=== PATIENT | female | born 1950 | race Caucasian/White ===

== ENCOUNTER → 2016-11-14 | Outpatient (CLI) | payer MEDICARE ==
--- NOTE | 2016-11-15 10:40 | MM ---
Reason for exam: screening (asymptomatic). Last mammogram was performed 1 year and 1 month ago. History: Patient is postmenopausal. Benign core biopsy of the left breast, 1985. Physical Findings: A clinical breast exam by your physician is recommended on an annual basis and results should be correlated with mammographic findings. MG 3D Screening Mammo W/Cad Bilateral CC and MLO view(s) were taken. Prior study comparison: October 29, 2015, bilateral MG screening mammo w CAD. September 14, 2011, bilateral digital screening mammo w/CAD. There are scattered fibroglandular densities. Finding: There are typically benign calcifications in the left breast. There is a chronic nodularity in the left breast. No significant changes in finding since October 29, 2015 and September 14, 2011. ASSESSMENT: Benign, BI-RAD 2 RECOMMENDATION: Routine screening mammogram of both breasts in 1 year.
== END | disposition home or self-care (01) ==
LOC: RADMAMWWP 12:57
PROVIDERS: ATTEND Internal Medicine
DX: Z12.31 Encounter for screening mammogram for malignant neoplasm of breast (principal); Z78.0 Asymptomatic menopausal state
CPT/HCPCS: 77063; G0202

== ENCOUNTER 2016-12-21 18:16 | Inpatient (IN) | payer MEDICARE ==
[2016-12-21] MEDS ORDERED: SODIUM CHLORIDE 0.9% 1,000 ML IV STA (19:14)
[2016-12-21] MEDS ORDERED: HYDROmorphone 1 MG/ML 1 ML SYRINGE IVP STA (19:15)
[2016-12-21] MEDS ORDERED: ONDANSETRON 4 MG/2 ML VIAL IVP STA (19:15)
--- NOTE | 2016-12-21 19:18 | ED ---
Abdominal Pain HPI - General Chief Complaint: Abdominal Pain Stated Complaint: poss medication reaction Time Seen by Provider: 12/21/16 18:39 Source: patient, RN notes reviewed Mode of arrival: wheelchair Limitations: no limitations - History of Present Illness Initial Comments: Patient is a 66-year-old female presents to the emergency room for evaluation of abdominal pain. Patient states around 4 PM this evening she began with abdominal pain, nausea and vomiting. Patient states she received an injection in her back yesterday by Dr. Ibarra. Patient states she is not sure what the injection was. Patient states she thinks she is having a reaction to the injection. Patient states having 10 out of 10 pain in her abdomen diffusely. Patient also states she is feeling short of breath. Denies cough. Patient states she has a history of perforated bowel from a colonoscopy about 10 years ago, that was surgically repaired. Patient denies any other abdominal surgeries. Patient denies history of bowel obstructions. Patient denies diarrhea or constipation. Patient denies change in color of stools or blood in stools. Patient denies chest pain. Patient denies dizziness. Patient states she is having a headache. Patient denies pain or burning during urination, trouble urinating or blood in urine. - Related Data Home Medications Medication Instructions Recorded Confirmed Atenolol [Tenormin] 50 mg PO QAM 02/08/15 12/21/16 Atorvastatin [Lipitor] 10 mg PO DAILY 02/08/15 12/21/16 Desvenlafaxine Succinate [Pristiq 100 mg PO QAM 02/08/15 12/21/16 ER] Diphenoxylate HCl/Atropine 1 tab PO DAILY 02/08/15 12/21/16 [Lomotil] Levothyroxine Sodium [Synthroid] 137 mcg PO DAILY 02/08/15 12/21/16 amLODIPine [Norvasc] 5 mg PO HS 02/08/15 12/21/16 Aspirin 325 mg PO DAILY 12/21/16 12/21/16 Omeprazole 20 mg PO DAILY 12/21/16 12/21/16 metFORMIN HCL [Glucophage] 500 mg PO BID 12/21/16 12/21/16 Allergies Allergy/AdvReac Type Severity Reaction Status Date / Time quinine Allergy Dyspnea Verified 12/21/16 19:20 ADHESIVE TAPE AdvReac Unknown RED , Uncoded 12/21/16 18:21 IRRITATED SKIN. "PAPER TAPE IS OK" Review of Systems ROS Statement: Those systems with pertinent positive or pertinent negative responses have been documented in the HPI. ROS Other: All systems not noted in ROS Statement are negative. Past Medical History Past Medical History: Deep Vein Thrombosis (DVT), GERD/Reflux, Hyperlipidemia, Hypertension, Osteoarthritis (OA), Thyroid Disorder Additional Past Medical History / Comment(s): ENVIRONMENTAL ALLERGIES, CHRONIC DIARRHEA, FREQUENT URINATION. DVT ,HERNIA,RECENT ABNORMAL CT OF ABD/PELVIS History of Any Multi-Drug Resistant Organisms: None Reported Past Surgical History: Hernia Repair, Joint Replacement Additional Past Surgical History / Comment(s): COLONOSCOPY WITH PERFORATED BOWEL & BOWEL RESECTION THEN MORE SURGERY FOR INFECTION.LEFT HIP REPLACEMENT ( MAY 2013). INCISION HERNIA REPAIR,TUMOR REMOVED FROM BEHIND RT EAR. Past Anesthesia/Blood Transfusion Reactions: No Reported Reaction Additional Past Anesthesia/Blood Transfusion Reaction / Comment(s): SOMETIMES TAKES LONGER WAKING UP FROM ANESTHESIA.DAUGHTER BECOMES AGITATED WITH ANESTHESIA Past Psychological History: Depression Smoking Status: Former smoker Past Alcohol Use History: None Reported Additional Past Alcohol Use History / Comment(s): QUIT SMOKING .STARTED SMOKING APPROX 1963 Past Drug Use History: None Reported - Past Family History Father Additional Family Medical History / Comment(s): BRAIN HEMORRHAGE Son(s) Family Medical History: Cancer Additional Family Medical History / Comment(s): THYROID-NON HODGKINS General Exam - General Exam Comments Initial Comments: Anxious secondary to discomfort Limitations: no limitations General appearance: alert, anxious Head exam: Present: atraumatic, normocephalic, normal inspection Eye exam: Present: normal appearance ENT exam: Present: normal exam Neck exam: Present: normal inspection Respiratory exam: Present: normal lung sounds bilaterally. Absent: respiratory distress Cardiovascular Exam: Present: regular rate, normal rhythm, normal heart sounds GI/Abdominal exam: Present: soft, tenderness (Diffuse tenderness on palpating over the abdomen), guarding (Voluntary guarding on palpating over the abdomen), normal bowel sounds. Absent: distended, rebound, rigid Extremities exam: Present: normal inspection Back exam: Present: normal inspection Neurological exam: Present: alert, oriented X3, CN II-XII intact Psychiatric exam: Present: normal affect, normal mood Skin exam: Present: warm, dry, intact, normal color. Absent: rash Course Vital Signs 12/21/16 12/21/16 12/21/16 18:17 21:05 22:57 Temperature 96.8 F L 97.8 F 97.6 F Pulse Rate 88 90 67 Respiratory 26 H 18 18 Rate Blood Pressure 149/76 132/73 132/68 O2 Sat by Pulse 98 92 L 98 Oximetry Medical Decision Making - Medical Decision Making Patient is a 66-year-old female presents emergency room for evaluation abdominal pain, shortness of breath and nausea/vomiting. Patient noted to have an elevated d-dimer. CTA negative for PE. WBC also elevated. Patient still complaining of abdominal pain. CT abdomen and pelvis significant for small bowel obstruction. NG tube placed. Patient states the shortness of breath has subsided after pain medications given. Patient will be consulted with on-call surgeon. Case discussed with Dr. Pepe and Dr. Roque. Case discussed with AMINA Foster who agreed to admit for Dr. Holbrook. - Lab Data Result diagrams: 12/21/16 19:14 12/21/16 19:14 Lab Results 12/21/16 12/21/16 12/21/16 Range/Units 19:14 19:14 19:18 WBC 20.7 H (3.8-10.6) k/uL RBC 5.36 (3.80-5.40) m/uL Hgb 16.6 H (11.4-16.0) gm/dL Hct 49.2 H (34.0-46.0) % MCV 91.9 (80.0-100.0) fL MCH 31.0 (25.0-35.0) pg MCHC 33.8 (31.0-37.0) g/dL RDW 13.7 (11.5-15.5) % Plt Count 376 (150-450) k/uL Neutrophils % 77 % Lymphocytes % 17 % Monocytes % 4 % Eosinophils % 0 % Basophils % 0 % Neutrophils # 15.9 H (1.3-7.7) k/uL Lymphocytes # 3.6 (1.0-4.8) k/uL Monocytes # 0.8 (0-1.0) k/uL Eosinophils # 0.0 (0-0.7) k/uL Basophils # 0.0 (0-0.2) k/uL PT (9.0-12.0) sec INR (<1.1) APTT (22.0-30.0) sec D-Dimer (<0.60) mg/L FEU Sodium 142 (137-145) mmol/L Potassium 3.9 (3.5-5.1) mmol/L Chloride 108 H (98-107) mmol/L Carbon Dioxide 16 L (22-30) mmol/L Anion Gap 18 mmol/L BUN 22 H (7-17) mg/dL Creatinine 0.68 (0.52-1.04) mg/dL Est GFR (MDRD) Af Amer >60 (>60 ml/min/1.73 sqM) Est GFR (MDRD) Non-Af >60 (>60 ml/min/1.73 sqM) Glucose 195 H (74-99) mg/dL Calcium 11.1 H (8.4-10.2) mg/dL Magnesium 1.6 (1.6-2.3) mg/dL Total Bilirubin 0.9 (0.2-1.3) mg/dL AST 35 (14-36) U/L ALT 38 (9-52) U/L Alkaline Phosphatase 125 (38-126) U/L Total Creatine Kinase 44 (30-135) U/L CK-MB (CK-2) 1.1 (0.0-2.4) ng/mL CK-MB (CK-2) Rel Index 2.5 Troponin I <0.012 (0.000-0.034) ng/mL Total Protein 9.1 H (6.3-8.2) g/dL Albumin 4.8 (3.5-5.0) g/dL Amylase 94 (30-110) U/L Lipase 212 (23-300) U/L Urine Color Urine Appearance (Clear) Urine pH (5.0-8.0) Ur Specific [place] (1.001-1.035) Urine Protein (Negative) Urine Glucose (UA) (Negative) Urine Ketones (Negative) Urine Blood (Negative) Urine Nitrite (Negative) Urine Bilirubin (Negative) Urine Urobilinogen (<2.0) mg/dL Ur Leukocyte Esterase (Negative) Urine RBC (0-5) /hpf Urine WBC (0-5) /hpf Ur Squamous Epith Cells (0-4) /hpf Urine Mucus (None) /hpf 12/21/16 12/21/16 Range/Units 19:18 20:30 WBC (3.8-10.6) k/uL RBC (3.80-5.40) m/uL Hgb (11.4-16.0) gm/dL Hct (34.0-46.0) % MCV (80.0-100.0) fL MCH (25.0-35.0) pg MCHC (31.0-37.0) g/dL RDW (11.5-15.5) % Plt Count (150-450) k/uL Neutrophils % % Lymphocytes % % Monocytes % % Eosinophils % % Basophils % % Neutrophils # (1.3-7.7) k/uL Lymphocytes # (1.0-4.8) k/uL Monocytes # (0-1.0) k/uL Eosinophils # (0-0.7) k/uL Basophils # (0-0.2) k/uL PT 10.8 (9.0-12.0) sec INR 1.1 (<1.1) APTT 22.1 (22.0-30.0) sec D-Dimer 1.49 H (<0.60) mg/L FEU Sodium (137-145) mmol/L Potassium (3.5-5.1) mmol/L Chloride (98-107) mmol/L Carbon Dioxide (22-30) mmol/L Anion Gap mmol/L BUN (7-17) mg/dL Creatinine (0.52-1.04) mg/dL Est GFR (MDRD) Af Amer (>60 ml/min/1.73 sqM) Est GFR (MDRD) Non-Af (>60 ml/min/1.73 sqM) Glucose (74-99) mg/dL Calcium (8.4-10.2) mg/dL Magnesium (1.6-2.3) mg/dL Total Bilirubin (0.2-1.3) mg/dL AST (14-36) U/L ALT (9-52) U/L Alkaline Phosphatase (38-126) U/L Total Creatine Kinase (30-135) U/L CK-MB (CK-2) (0.0-2.4) ng/mL CK-MB (CK-2) Rel Index Troponin I (0.000-0.034) ng/mL Total Protein (6.3-8.2) g/dL Albumin (3.5-5.0) g/dL Amylase (30-110) U/L Lipase (23-300) U/L Urine Color Yellow Urine Appearance Clear (Clear) Urine pH 6.5 (5.0-8.0) Ur Specific [place] 1.014 (1.001-1.035) Urine Protein Trace H (Negative) Urine Glucose (UA) Negative (Negative) Urine Ketones 1+ H (Negative) Urine Blood Negative (Negative) Urine Nitrite Negative (Negative) Urine Bilirubin Negative (Negative) Urine Urobilinogen <2.0 (<2.0) mg/dL Ur Leukocyte Esterase Moderate H (Negative) Urine RBC <1 (0-5) /hpf Urine WBC 7 H (0-5) /hpf Ur Squamous Epith Cells <1 (0-4) /hpf Urine Mucus Rare H (None) /hpf 12/21/16 19:32 Sinuis bradycardia, ventricular rate 59 bpm, MN interval 178 ms, QRS duration 94 ms, QT/QTC 452/447. - Radiology Data Radiology results: report reviewed, image reviewed Disposition Clinical Impression: Leukocytosis, Abdominal pain, Shortness of breath, Small bowel obstruction Disposition: ADMITTED IP TO THIS [facility] Condition: Stable Decision Date: 12/21/16
[2016-12-21 19:23] LABS: Basophils % (A) 0 %; CH 32.7; CHCM 35.7; Eosinophils % (A) 0 %; HCT 49.2 % (34.0-46.0); HDW 2.92; HGB 16.6 gm/dL (11.4-16.0); Luc % (Auto) 1; Lymphocytes # (A) 3.6 k/uL (1.0-4.8); Lymphocytes % (A) 17 %; MCHC 33.8 g/dL (31.0-37.0); MCV 91.9 fL (80.0-100.0); Mean Platelet Volume 6.7; Monocytes # (A) 0.8 k/uL (0-1.0); Monocytes % (A) 4 %; Neutrophils # (A) 15.9 k/uL (1.3-7.7); Neutrophils % (A) 77 %; RBC 5.36 m/uL (3.80-5.40); RDW 13.7 % (11.5-15.5); WBC 20.7 k/uL (3.8-10.6); WBC (Perox) 21.03
[2016-12-21 19:35] LABS: ALT 38 U/L (9-52); AST 35 U/L (14-36); Alkaline Phosphatase 125 U/L (38-126); Amylase 94 U/L (30-110); Anion Gap 18 mmol/L; Blood Urea Nitrogen 22 mg/dL (7-17); Calcium 11.1 mg/dL (8.4-10.2); Carbon Dioxide 16 mmol/L (22-30); Chloride 108 mmol/L (98-107); Glucose 195 mg/dL (74-99); Magnesium 1.6 mg/dL (1.6-2.3); Non-African American GFR(MDRD) >60 (>60 ml/min/1.73 sqM); Potassium 3.9 mmol/L (3.5-5.1); Sodium 142 mmol/L (137-145); Total Bilirubin 0.9 mg/dL (0.2-1.3); Total Protein 9.1 g/dL (6.3-8.2)
--- NOTE | 2016-12-21 19:43 | XR ---
EXAMINATION TYPE: XR chest 2V DATE OF EXAM: 12/21/2016 7:39 PM COMPARISON: 02/02/2016 HISTORY: Vomiting TECHNIQUE: Frontal and lateral views of the chest are obtained. FINDINGS: Heart and mediastinum are normal. Lungs are clear. Costophrenic angles are clear. There ar e no hilar masses. The bony thorax is intact. IMPRESSION: No cardiopulmonary disease. No change.
[2016-12-21 20:47] LABS: Appearance,Urine Clear (Clear); Bilirubin,Urine Negative (Negative); Glucose,Urine (UA) Negative (Negative); Ketones,Urine 1+ (Negative); Leukocyte Esterase,Urine Moderate (Negative); Mucus,Urine Rare /hpf; Nitrite,Urine Negative (Negative); PH, Urine 6.5 (5.0-8.0); Particle Count 1407; Protein,Urine Trace (Negative); RBC,Urine <1 /hpf (0-5); Specific Gravity,Urine 1.014 (1.001-1.035); Squamous Epithelial Cell,Urine <1 /hpf (0-4); UA Billing (MACRO vs. MICRO) MICRO; Urobilinogen,Urine <2.0 mg/dL (<2.0); WBC,Urine 7 /hpf (0-5)
[2016-12-21 20:52] LABS: Creatine Kinase 44 U/L (30-135)
[2016-12-21 20:59] LABS: INR 1.1 (<1.1); Prothrombin Time 10.8 sec (9.0-12.0)
[2016-12-21 21:04] LABS: Creatine Kinase MB 1.1 ng/mL (0.0-2.4); Troponin I <0.012 ng/mL (0.000-0.034)
[2016-12-21 21:10] LABS: Partial Thromboplastin Time 22.1 sec (22.0-30.0)
[2016-12-21] MEDS ORDERED: ACETAMINOPHEN IV (For NPO) 1,000 MG in EMPTY BAG 1 BAG IVPB STA (21:13)
[2016-12-21] MEDS ORDERED: RX INFO: IV CONTRAST WAS GIVEN 1 EACH MISC MISCELLANE PRN (21:20)
--- NOTE | 2016-12-21 22:08 | CT ---
EXAMINATION TYPE: CT angio chest DATE OF EXAM: 12/21/2016 9:45 PM COMPARISON: 11/10/2010 HISTORY: Elevated d-dimer. CT DLP: 529.00 mGycm Automated exposure control for dose reduction was used. CONTRAST: CTA scan of the thorax is performed with IV Contrast, patient injected with 62 mL of Omnipaque 350, p ulmonary embolism protocol. There are 3-D post processed images.. FINDINGS: The thoracic aorta shows mild atheromatous change. There are few mediastinal lymph nodes that measure up to 1 cm. There are few bilateral bronchial lymph nodes up to 1 cm. I see no filling defects in th e pulmonary arteries. There is no pleural effusion. There is coarse subpleural interstitial infiltrat e in the lower lung delgado. There is a 1 cm nodule in the posterior segment left upper lobe. There is no pericardial effusion. Bony thorax appears intact. IMPRESSION: NO EVIDENCE OF PULMONARY EMBOLISM. LEFT UPPER LOBE NODULE IS INCREASED SLIGHTLY COMPARED TO OLD CT SCAN. CLINICAL SIGNIFICANCE IS NOT CL EAR. 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 MILD MEDIASTINAL AND BRONCHIAL ADENOPATHY. THIS APPEARS STABLE COMPARED TO OLD EXAM.
[2016-12-21] MEDS ORDERED: ONDANSETRON 4 MG/2 ML VIAL IVP PRN (22:22)
[2016-12-21] MEDS ORDERED: NALOXONE 0.4 MG/ML 1 ML VIAL IV PRN (22:22)
--- NOTE | 2016-12-21 22:50 | CT ---
EXAMINATION TYPE: CT abdomen pelvis wo con DATE OF EXAM: 12/21/2016 10:32 PM COMPARISON: 09/03/2015 HISTORY: Pt states of abdominal pain. CT DLP: 509.2 mGycm Automated exposure control for dose reduction was used. TECHNIQUE: Helical acquisition of images was performed from the lung bases through the pelvis. FINDINGS: Lung bases are clear of consolidation. There is no pleural effusion. Heart size is normal. The liver spleen pancreas gallbladder appear normal. Bile ducts are not dilated. There is contrast in the kidneys from recent CT scan. There is no hydronephrosis. [place] there is no adrenal mass. Kidneys have normal size and contour. Abdominal aorta is atheromatous. There is mild fat stranding in the rig ht lower quadrant. There are some dilated small bowel loops. The distal ileum does not appear dilated . There appears to be previous right colon surgery. IMPRESSION: THERE ARE SOME DILATED SMALL BOWEL LOOPS IN THE MIDABDOMEN WITH MESENTERIC EDEMA. THIS COULD RELATE T O A MECHANICAL MID SMALL BOWEL OBSTRUCTION. THIS APPEARS NEW COMPARED TO OLD CT SCAN. THERE IS PREVIO US RIGHT COLON SURGERY NOTED.
[2016-12-22] MEDS: HYDROmorphone 1 MG/ML 1 ML SYRINGE IV PRN ×6 (00:15→21:16)
[2016-12-22] MEDS: SODIUM CHLORIDE 0.9% 1,000 ML IV SCH ×3 (01:27→16:49)
[2016-12-22 02:42] VITALS: BMI 26.0
[2016-12-22 08:02] LABS: Glucose,Whole Blood 129 mg/dL (75-99)
[2016-12-22] MEDS: INSULIN LISPRO (humaLOG) 300 UNIT/3 ML VIAL SQ SCH ×4 (08:02→21:15)
[2016-12-22 09:28] LABS: Basophils % (A) 0 %; CH 32.1; CHCM 35.5; Eosinophils % (A) 0 %; HCT 41.6 % (34.0-46.0); HDW 3.09; HGB 14.7 gm/dL (11.4-16.0); Luc # (Auto) 0.56; Luc % (Auto) 3; Lymphocytes # (A) 2.7 k/uL (1.0-4.8); Lymphocytes % (A) 13 %; MCHC 35.3 g/dL (31.0-37.0); MCV 90.7 fL (80.0-100.0); Mean Platelet Volume 6.4; Monocytes # (A) 1.3 k/uL (0-1.0); Monocytes % (A) 6 %; Neutrophils % (A) 79 %; RBC 4.59 m/uL (3.80-5.40); RDW 13.4 % (11.5-15.5); WBC 21.5 k/uL (3.8-10.6)
[2016-12-22 10:05] LABS: Hemoglobin A1C 5.5 % (4.2-6.1)
[2016-12-22 10:17] LABS: ALT 37 U/L (9-52); AST 26 U/L (14-36); Alkaline Phosphatase 85 U/L (38-126); Anion Gap 11 mmol/L; Blood Urea Nitrogen 16 mg/dL (7-17); Calcium 9.3 mg/dL (8.4-10.2); Carbon Dioxide 21 mmol/L (22-30); Chloride 107 mmol/L (98-107); Glucose 113 mg/dL (74-99); Non-African American GFR(MDRD) >60 (>60 ml/min/1.73 sqM); Potassium 4.1 mmol/L (3.5-5.1); Sodium 139 mmol/L (137-145); Total Bilirubin 0.6 mg/dL (0.2-1.3); Total Protein 7.2 g/dL (6.3-8.2)
[2016-12-22] MEDS: PANTOPRAZOLE 40 MG/10 ML VIAL IVP SCH (12:04)
[2016-12-22 12:12] LABS: Glucose,Whole Blood 127 mg/dL (75-99)
[2016-12-22] MEDS ORDERED: LORazepam 2 MG/ML SYRINGE IV PRN (15:42)
--- NOTE | 2016-12-22 16:25 | P.GSCN ---
History of Present Illness Consult date: 12/22/16 Reason for Consult: Bowel obstruction History of present illness: Patient states that she was feeling well up until yesterday morning when she began experiencing crampy abdominal pain. The abdominal pain is in the lower abdomen. This was eventually associated with numerous episodes of nausea and vomiting. She came to the hospital yesterday afternoon with these complaints. No history of similar events in the past. Denies fevers. Her white blood cell count is elevated and on repeat was also elevated. CAT scan shows distended bowel loops. There is some inflammatory changes involving the distal small bowel. No swirling of the mesentery was seen. She says that after they placed the nasogastric tube her pain has dramatically improved to the point that she has only throat related discomfort from the tube at this point. She had a normal bowel movement yesterday. She passed flatus today. Denies rectal bleeding or melena. She is afebrile. No tachycardia. Lactic acid is normal. Review of Systems The patient denies any acute changes in his vision or hearing, no dysphagia or odynophagia, no chest pain or shortness of breath, no dysuria or hematuria, no headache, no runny nose, no rectal bleeding or melena, no unexplained weight loss Past Medical History Past Medical History: Deep Vein Thrombosis (DVT), GERD/Reflux, Hyperlipidemia, Hypertension, Osteoarthritis (OA), Thyroid Disorder Additional Past Medical History / Comment(s): ENVIRONMENTAL ALLERGIES, CHRONIC DIARRHEA, FREQUENT URINATION. DVT ,HERNIA,RECENT ABNORMAL CT OF ABD/PELVIS History of Any Multi-Drug Resistant Organisms: None Reported Past Surgical History: Hernia Repair, Joint Replacement Additional Past Surgical History / Comment(s): COLONOSCOPY WITH PERFORATED BOWEL & BOWEL RESECTION THEN MORE SURGERY FOR INFECTION.LEFT HIP REPLACEMENT ( MAY 2013). INCISION HERNIA REPAIR,TUMOR REMOVED FROM BEHIND RT EAR. Past Anesthesia/Blood Transfusion Reactions: No Reported Reaction Additional Past Anesthesia/Blood Transfusion Reaction / Comm: SOMETIMES TAKES LONGER WAKING UP FROM ANESTHESIA.DAUGHTER BECOMES AGITATED WITH ANESTHESIA Past Psychological History: Depression Smoking Status: Former smoker Past Alcohol Use History: None Reported Additional Past Alcohol Use History / Comment(s): QUIT SMOKING .STARTED SMOKING APPROX 1963 Past Drug Use History: None Reported - Past Family History Father Additional Family Medical History / Comment(s): BRAIN HEMORRHAGE Son(s) Family Medical History: Cancer Additional Family Medical History / Comment(s): THYROID-NON HODGKINS Medications and Allergies Home Medications Medication Instructions Recorded Confirmed Type Atenolol [Tenormin] 50 mg PO QAM 02/08/15 12/21/16 History Atorvastatin [Lipitor] 10 mg PO DAILY 02/08/15 12/21/16 History Desvenlafaxine Succinate [Pristiq 100 mg PO QAM 02/08/15 12/21/16 History ER] Diphenoxylate HCl/Atropine 1 tab PO DAILY 02/08/15 12/21/16 History [Lomotil] Levothyroxine Sodium [Synthroid] 137 mcg PO DAILY 02/08/15 12/21/16 History amLODIPine [Norvasc] 5 mg PO HS 02/08/15 12/21/16 History Aspirin 325 mg PO DAILY 12/21/16 12/21/16 History Omeprazole 20 mg PO DAILY 12/21/16 12/21/16 History metFORMIN HCL [Glucophage] 500 mg PO BID 12/21/16 12/21/16 History Allergies Allergy/AdvReac Type Severity Reaction Status Date / Time quinine Allergy Dyspnea Verified 12/21/16 19:20 ADHESIVE TAPE AdvReac Unknown RED , Uncoded 12/21/16 18:21 IRRITATED SKIN. "PAPER TAPE IS OK" Surgical - Exam Vital Signs Temp Pulse Resp BP Pulse Ox 96.8 F L 88 26 H 149/76 98 12/21/16 18:17 12/21/16 18:17 12/21/16 18:17 12/21/16 18:17 12/21/16 18:17 Physical exam: General: Well-developed, well-nourished HEENT: Normocephalic, sclerae nonicteric Abdomen: Mild lower abdominal tenderness, no rebound or guarding, nondistended Extremities: No edema Neuro: Alert and oriented Results - Labs 12/22/16 09:03 12/22/16 09:03 Abnormal Lab Results - Last 24 Hours (Table) 12/22/16 12/22/16 12/22/16 Range/Units 08:00 09:03 09:03 WBC 21.5 H (3.8-10.6) k/uL Neutrophils # 17.0 H (1.3-7.7) k/uL Monocytes # 1.3 H (0-1.0) k/uL Carbon Dioxide 21 L (22-30) mmol/L Glucose 113 H (74-99) mg/dL POC Glucose (mg/dL) 129 H (75-99) mg/dL 12/22/16 Range/Units 12:10 WBC (3.8-10.6) k/uL Neutrophils # (1.3-7.7) k/uL Monocytes # (0-1.0) k/uL Carbon Dioxide (22-30) mmol/L Glucose (74-99) mg/dL POC Glucose (mg/dL) 127 H (75-99) mg/dL Diabetes panel 12/22/16 12/22/16 Range/Units 09:03 09:03 Sodium 139 (137-145) mmol/L Potassium 4.1 (3.5-5.1) mmol/L Chloride 107 (98-107) mmol/L Carbon Dioxide 21 L (22-30) mmol/L BUN 16 (7-17) mg/dL Creatinine 0.58 (0.52-1.04) mg/dL Glucose 113 H (74-99) mg/dL Hemoglobin A1c 5.5 (4.2-6.1) % Calcium 9.3 (8.4-10.2) mg/dL AST 26 (14-36) U/L ALT 37 (9-52) U/L Alkaline Phosphatase 85 (38-126) U/L Total Protein 7.2 (6.3-8.2) g/dL Albumin 3.8 (3.5-5.0) g/dL Calcium panel 12/22/16 Range/Units 09:03 Calcium 9.3 (8.4-10.2) mg/dL Albumin 3.8 (3.5-5.0) g/dL Pituitary panel 12/22/16 Range/Units 09:03 Sodium 139 (137-145) mmol/L Potassium 4.1 (3.5-5.1) mmol/L Chloride 107 (98-107) mmol/L Carbon Dioxide 21 L (22-30) mmol/L BUN 16 (7-17) mg/dL Creatinine 0.58 (0.52-1.04) mg/dL Glucose 113 H (74-99) mg/dL Calcium 9.3 (8.4-10.2) mg/dL Adrenal panel 04/21/17 Range/Units 09:03 Sodium 139 (137-145) mmol/L Potassium 4.1 (3.5-5.1) mmol/L Chloride 107 (98-107) mmol/L Carbon Dioxide 21 L (22-30) mmol/L BUN 16 (7-17) mg/dL Creatinine 0.58 (0.52-1.04) mg/dL Glucose 113 H (74-99) mg/dL Calcium 9.3 (8.4-10.2) mg/dL Total Bilirubin 0.6 (0.2-1.3) mg/dL AST 26 (14-36) U/L ALT 37 (9-52) U/L Alkaline Phosphatase 85 (38-126) U/L Total Protein 7.2 (6.3-8.2) g/dL Albumin 3.8 (3.5-5.0) g/dL Assessment and Plan (1) Small bowel obstruction Narrative/Plan: The clinical scenario was discussed in detail with the patient and her . Patient certainly appears to have a mechanical obstruction. Internal hernia is a possibility given the inflammatory changes however the patient has improved fairly dramatically since her nasogastric tube placement. The option of laparotomy was reviewed. At this point the patient I decided continue close observation. If the patient has recurrent abdominal pain or persistent leukocytosis or any other worrisome change in her status would proceed with laparotomy at that point. Repeat abdominal x-rays for tomorrow have been ordered. Would continue empiric antibiotics for now. Status: Acute
[2016-12-22] MEDS: PIPERACILLIN-TAZOBACTAM 3.375 GM in DEXTROSE/WATER 1 50ML.BAG IVPB SCH ×2 (16:49→23:49)
--- NOTE | 2016-12-22 17:27 | HP ---
DATE OF ADMISSION: DATE OF SERVICE: 12/22/2016 CHIEF COMPLAINT: Abdominal pain. HISTORY OF PRESENT ILLNESS: This 66-year-old woman with a past history of DVT, GERD, hypertension, hyperlipidemia, history of DJD, history of environmental allergies, history of chronic diarrhea, being followed by Dr. Trevino in the outpatient setting, had complaints of abdominal discomfort, nausea and vomiting since yesterday. The patient had a pain injection in the back by Dr. Ibarra yesterday. The patient was having significant abdominal distention. The pain was out of 10 in intensity, which is diffuse in character. Because of multiple symptomatology, patient came to [facility] and was admitted for further evaluation and treatment. WBC elevated at 21.5. The patient also had a CT scan of the abdomen and pelvis that showed some dilated small loops in the mid abdomen with mesenteric edema; this could be related to mechanical and small bowel obstruction. Otherwise, a chest CT was also done which showed no evidence of pulmonary embolism but a left upper lobe nodule, increased slightly compared to old scan. Interstitial densities in both lungs consistent with idiopathic pulmonary fibrosis also noted. There is no history of any fever, rigor, or chills. No history of any headache, loss of consciousness, seizures. PAST MEDICAL HISTORY: 1. History of DVT. 2. History of GERD. 3. Hypertension. 4. History of previous abdominal surgery with colon resection and colonic perforation. 5. History of depression. 6. History of nicotine dependence. HOME MEDICATIONS: 1. Glucophage 500 mg p.o. b.i.d. 2. Norvasc 5 mg at bedtime. 3. Omeprazole 20 mg p.o. daily. 4. Synthroid 137 mcg p.o. daily. 5. Lomotil 1 tablet p.o. daily. 6. Prestiq ER 100 mg p.o. in the morning. 7. Lipitor 10 mg p.o. daily. 8. Tenormin 50 mg each morning. 9. Aspirin 81 mg. ALLERGIES: QUININE, ADHESIVE TAPES. FAMILY HISTORY: History of cancer, brain hemorrhage in the family. SOCIAL HISTORY: Previous history of smoking. No alcohol or smoking at this time. REVIEW OF SYSTEMS: ENT: No diminishing hearing. No diminished vision. CARDIOVASCULAR SYSTEM: No angina, palpitations. RESPIRATORY SYSTEM: As mentioned earlier. GI: As mentioned earlier. : No dysuria. NERVOUS SYSTEM: No numbness or weakness. ALLERGY/IMMUNOLOGY: No asthma, hayfever. MUSCULOSKELETAL: As mentioned earlier. HEMATOLOGY/ONCOLOGY: No history of anemia. ENDOCRINE: Hypothyroidism and diabetes mellitus. CONSTITUTIONAL: As mentioned earlier. DERMATOLOGY: Negative. RHEUMATOLOGY: Negative. PSYCHIATRY: As mentioned earlier. PHYSICAL EXAMINATION: Patient is alert and oriented x3. Pulse is 94, blood pressure 154/88. Respiration 16. Temperature 97.4. Pulse ox 90% on room air. HEENT: Conjunctivae normal. Oral mucosa moist. NECK: No jugular venous distention. No carotid bruit. No lymph node enlargement. CARDIOVASCULAR SYSTEM: S1 normal. S2 normal. No S3. No S4. RESPIRATORY SYSTEM: Breath sounds diminished at the bases. No rhonchi. No crackles. ABDOMEN: Soft. Mild diffuse distention. Mild diffuse tenderness. No guarding. No rigidity. No mass palpable. Bowel sounds diminished. No ascites. NG tube in situ draining slightly colored fluid. LEGS: No edema. No swelling. NERVOUS SYSTEM: Higher functions as mentioned earlier. Moves all 4 limbs. No focal motor or sensory deficit. LYMPHATICS: No lymph node palpable in neck, axillae or groin. SKIN: No ulcer, rash, bleeding. Labs at this time show WBC 21.5. Sodium 139, potassium 4.1. UA noted. ASSESSMENT: 1. Abdominal pain and distention, pain, possibly partial small bowel obstruction, on NG tube. Conservative line of treatment. 2. History of urinary tract infection. 3. Increased white count. 4. Increased D-dimer. 5. Increased random blood sugar. 6. History of deep venous thrombosis. 7. History of gastroesophageal reflux disease. 8. Hypertension, essential. 9. Hyperlipidemia. 10. History of degenerative joint disease. 11. History of hypothyroidism. 12. History of environmental allergies. 13. History of chronic diarrhea. 14. History of colon perforation and previous surgery after colonoscopy. 15. History degenerative joint disease, hip replacement. 16. History of depression not otherwise specified. 17. Remote history of nicotine dependence. 18. FULL CODE. RECOMMENDATIONS AND DISCUSSION: This 66-year-old woman who presented with multiple complex medical issues, we will monitor patient closely, continue the current medications, continue with symptomatic treatment. Otherwise, at this time I recommend conservative line of treatment. I would also use empiric antibiotics for apparent UTI. I will also recommend cultures. The white count is also elevated. There is a remote possibility of sepsis also to be considered. I would also recommend a lactic acid. Further recommendations to follow. See orders for further details. MTDD
[2016-12-22 17:43] LABS: Glucose,Whole Blood 107 mg/dL (75-99)
[2016-12-22 20:42] LABS: Glucose,Whole Blood 110 mg/dL (75-99)
[2016-12-22] MEDS: amLODIPine 5 MG TAB PO SCH (21:14)
[2016-12-23] MEDS: SODIUM CHLORIDE 0.9% 1,000 ML IV SCH ×3 (02:25→16:06)
[2016-12-23] MEDS: HYDROmorphone 1 MG/ML 1 ML SYRINGE IV PRN ×5 (02:25→22:56)
[2016-12-23 02:56] LABS: Glucose,Whole Blood 97 mg/dL (75-99)
[2016-12-23] MEDS: LEVOTHYROXINE 137 MCG TAB PO SCH (06:07)
[2016-12-23] MEDS: INSULIN LISPRO (humaLOG) 300 UNIT/3 ML VIAL SQ SCH ×4 (07:45→21:06)
[2016-12-23 07:50] LABS: Glucose,Whole Blood 99 mg/dL (75-99)
[2016-12-23] MEDS: PANTOPRAZOLE 40 MG/10 ML VIAL IVP SCH (08:16)
[2016-12-23] MEDS: ATENOLOL 50 MG TAB PO SCH (08:16)
[2016-12-23] MEDS: DESVENLAFAXINE SUCCINATE 50 MG TAB.ER.24H PO SCH (08:16)
[2016-12-23] MEDS: PIPERACILLIN-TAZOBACTAM 3.375 GM in DEXTROSE/WATER 1 50ML.BAG IVPB SCH ×3 (08:17→22:59)
[2016-12-23 08:56] LABS: Basophils % (A) 0 %; CHCM 35.1; Eosinophils # (A) 0.1 k/uL (0-0.7); Eosinophils % (A) 0 %; HCT 43.4 % (34.0-46.0); HDW 3.01; HGB 14.9 gm/dL (11.4-16.0); Luc # (Auto) 0.43; Luc % (Auto) 3; Lymphocytes # (A) 2.9 k/uL (1.0-4.8); Lymphocytes % (A) 18 %; MCH 31.5 pg (25.0-35.0); MCHC 34.5 g/dL (31.0-37.0); MCV 91.5 fL (80.0-100.0); Mean Platelet Volume 6.5; Monocytes # (A) 0.8 k/uL (0-1.0); Monocytes % (A) 5 %; Neutrophils # (A) 11.5 k/uL (1.3-7.7); Neutrophils % (A) 73 %; RBC 4.74 m/uL (3.80-5.40); RDW 13.2 % (11.5-15.5); WBC 15.7 k/uL (3.8-10.6); WBC (Perox) 15.74
[2016-12-23 09:11] LABS: Anion Gap 8 mmol/L; Blood Urea Nitrogen 13 mg/dL (7-17); Calcium 9.8 mg/dL (8.4-10.2); Carbon Dioxide 26 mmol/L (22-30); Chloride 105 mmol/L (98-107); Glucose 98 mg/dL (74-99); Non-African American GFR(MDRD) >60 (>60 ml/min/1.73 sqM); Potassium 4.4 mmol/L (3.5-5.1); Sodium 139 mmol/L (137-145)
--- NOTE | 2016-12-23 10:37 | XR ---
EXAMINATION TYPE: XR abdomen complete w decub DATE OF EXAM: 12/23/2016 8:45 AM COMPARISON: NONE HISTORY: Bowel obstruction TECHNIQUE: Abdomen is examined in the upright and supine views. Left lateral decubitus view is obtain ed. FINDINGS: Nasogastric tube is present with the tip at the gastroesophageal junction region. This coul d be advanced approximately 8 cm. Psoas margins are normal. Normal colonic bowel gas is present. Suspicious air-fluid levels or differe ntial air-fluid levels are not evident. Some areas within mid small bowel loops. Postsurgical changes are at the right ascending colon. No free air is evident. IMPRESSION: 1. Nonspecific abdomen. No suspicious changes of obstruction based on this examination. 2. Nasogastric tube at the gastroesophageal junction. This could be advanced 8 cm.
[2016-12-23] MEDS: BENZOCAINE/MENTHOL LOZENG 1 EACH LOZENGE MUCOUS MEM PRN ×2 (10:38→19:58)
[2016-12-23 12:27] LABS: Glucose,Whole Blood 98 mg/dL (75-99)
--- NOTE | 2016-12-23 14:13 | P.PN ---
Subjective Principal diagnosis: The patient remains fairly stable. Abdominal discomfort the is stable. No worse than yesterday. States she did pass some flatus. On examination she is afebrile. In no acute distress. Vitals are good. Abdomen shows a minimal distention if any at all. Mild tenderness across the lower abdomen but no guarding or rebound. No mass or organomegaly noted. The patient remained stable. Denies any worsening upper abdominal pain. Did pass some flatus. She is afebrile. She is awake alert cheerful. In no acute distress. Vitals are stable. Abdomen is soft not particularly distended. Mild tenderness across the lower abdomen but no guarding or rebound. No mass or organomegaly or hernias noted. RBC is down to 15,700. X-ray was noted showing no significant change. Impression small bowel obstruction with slight improvement clinically with passage of some flatus. Recommendation continued the medical management with the NG tube IV fluids. Monitor her closely. Objective - Vital Signs Vital signs: Vital Signs Temp 97.0 F L 12/23/16 07:00 Pulse 83 12/23/16 07:00 Resp 16 12/23/16 07:00 BP 154/77 12/23/16 07:00 Pulse Ox 95 12/23/16 07:00 Intake & Output 12/22/16 12/23/16 12/23/16 18:59 06:59 18:59 Intake Total 0 Output Total 277 Balance -277 Intake: Oral 0 Output: Gastric Drainage 275 Urine 2 Other: Voiding Method Bedside Commode Bedside Commode # Voids 2 2 - Labs CBC & Chem 7: 12/23/16 07:33 12/23/16 07:33 Labs: Abnormal Lab Results - Last 24 Hours (Table) 12/22/16 12/22/16 12/23/16 Range/Units 17:33 20:39 07:33 WBC 15.7 H (3.8-10.6) k/uL Neutrophils # 11.5 H (1.3-7.7) k/uL POC Glucose (mg/dL) 107 H 110 H (75-99) mg/dL Microbiology - Last 24 Hours (Table) 12/22/16 18:42 Urine Culture - Preliminary Urine,Voided
[2016-12-23 17:14] LABS: Glucose,Whole Blood 100 mg/dL (75-99)
[2016-12-23] MEDS: amLODIPine 5 MG TAB PO SCH (19:59)
[2016-12-23 21:00] LABS: Glucose,Whole Blood 102 mg/dL (75-99)
[2016-12-24 02:24] LABS: Glucose,Whole Blood 94 mg/dL (75-99)
[2016-12-24] MEDS: SODIUM CHLORIDE 0.9% 1,000 ML IV SCH ×3 (04:05→18:28)
[2016-12-24] MEDS: HYDROmorphone 1 MG/ML 1 ML SYRINGE IV PRN ×5 (05:17→21:51)
[2016-12-24] MEDS: LEVOTHYROXINE 137 MCG TAB PO SCH (05:18)
[2016-12-24] MEDS: BENZOCAINE/MENTHOL LOZENG 1 EACH LOZENGE MUCOUS MEM PRN (05:18)
--- NOTE | 2016-12-24 07:23 | PN ---
DATE OF SERVICE: 12/23/2016 This 66-year-old woman was admitted to the hospital with abdominal pain, partial small bowel obstruction. Plain x-ray of the abdomen also was done today. The patient is feeling much better. Still abdomen is slightly tender. NG tube is Dr. Pink is covering for Dr. Latham. The patient apparently had some slight improvement with some flat. Continue NG tube is being continued with IV fluids. No chest pain. No palpitations. No fever. On exam, alert and oriented x3. Pulse 70, blood pressure 143/83, respiratory rate 16, temperature 97.5, pulse ox 93% on room air. HEENT: Conjunctivae normal. NECK: No jugular venous distention . CARDIOVASCULAR: S1, S2. RESPIRATORY: Breath sounds diminished at the bases. A few scattered rhonchi, no crackles. ABDOMEN: Soft, obese, mild diffuse distention. Mild diffuse tenderness present. No guarding. No rigidity. No mass palpable. LEGS: No edema. No swelling. CENTRAL NERVOUS SYSTEM: No focal deficits. LABS: WBC 15.7. ASSESSMENT: 1. Abdominal pain and distention, possibly acute small bowel obstruction on conservative treatment and NG tube. 2. Urinary tract infection. 3. Increased WBC. 4. Increased d-dimer. 5. Increased random blood sugar. 6. History of deep venous thrombosis. 7. History of gastroesophageal reflux disease. 8. Hypertension, essential. 9. Hyperlipidemia. 10. History of degenerative joint disease. 11. History of hypothyroidism. 12. History of environmental allergies. 13. History of chronic diarrhea. 14. History of colonic perforation and previous surgery after colonoscopy. 15. History of degenerative joint disease and hip replacement. 16. History of depression, not otherwise specified. 17. Nicotine dependence. 18. FULL CODE. RECOMMENDATIONS AND DISCUSSION: Recommend to continue current medications, continue symptomatic treatment. Otherwise, at this time I recommend to continue the conservative line of management. The patient lactic acid 1.5, closely follow with Dr. Latham and Dr. Pink. Further recommendations to follow. Prognosis guarded. Discussed with the patient. MTDD
[2016-12-24 07:50] LABS: Glucose,Whole Blood 91 mg/dL (75-99)
[2016-12-24] MEDS: INSULIN LISPRO (humaLOG) 300 UNIT/3 ML VIAL SQ SCH ×4 (08:48→21:25)
[2016-12-24] MEDS: PANTOPRAZOLE 40 MG/10 ML VIAL IVP SCH (08:50)
[2016-12-24] MEDS: PIPERACILLIN-TAZOBACTAM 3.375 GM in DEXTROSE/WATER 1 50ML.BAG IVPB SCH ×3 (08:50→23:36)
[2016-12-24] MEDS: ATENOLOL 50 MG TAB PO SCH (08:50)
[2016-12-24] MEDS: DESVENLAFAXINE SUCCINATE 50 MG TAB.ER.24H PO SCH (08:50)
[2016-12-24 08:59] LABS: Basophils % (A) 0 %; CH 32.2; Eosinophils # (A) 0.1 k/uL (0-0.7); Eosinophils % (A) 1 %; HCT 43.4 % (34.0-46.0); HDW 2.86; HGB 14.5 gm/dL (11.4-16.0); Luc # (Auto) 0.42; Luc % (Auto) 3; Lymphocytes # (A) 2.9 k/uL (1.0-4.8); Lymphocytes % (A) 20 %; MCH 30.8 pg (25.0-35.0); MCHC 33.3 g/dL (31.0-37.0); MCV 92.5 fL (80.0-100.0); Mean Platelet Volume 6.3; Monocytes # (A) 0.9 k/uL (0-1.0); Monocytes % (A) 6 %; Neutrophils # (A) 10.1 k/uL (1.3-7.7); Neutrophils % (A) 70 %; RBC 4.69 m/uL (3.80-5.40); RDW 13.2 % (11.5-15.5); WBC 14.5 k/uL (3.8-10.6); WBC (Perox) 14.61
[2016-12-24 09:12] LABS: Anion Gap 11 mmol/L; Blood Urea Nitrogen 16 mg/dL (7-17); Calcium 9.5 mg/dL (8.4-10.2); Carbon Dioxide 25 mmol/L (22-30); Chloride 105 mmol/L (98-107); Glucose 95 mg/dL (74-99); Non-African American GFR(MDRD) >60 (>60 ml/min/1.73 sqM); Potassium 4.3 mmol/L (3.5-5.1); Sodium 141 mmol/L (137-145)
--- NOTE | 2016-12-24 09:25 | P.PN ---
Progress Note - Text The patient is doing much better. Passing flatus now. She would the however like to keep the NG tube to another day which is reasonable. Less abdominal pain. On examination the patient is awake alert cheerful in no distress. Vitals are stable temperature is normal. The abdomen is soft are definitely less tender especially across the lower abdomen no guarding or rebound. No mass or organomegaly noted. Abdominal pain from yesterday was reviewed revealing nonspecific bowel gas pattern. WBC is down to 14,500 today. Impression. Resolving small bowel obstruction probably secondary to adhesive disease. Recommendation can probably DC the NG tube tomorrow morning. Dr. Latham will follow-up with her tomorrow.
[2016-12-24 12:32] LABS: Glucose,Whole Blood 94 mg/dL (75-99)
[2016-12-24 17:37] LABS: Glucose,Whole Blood 89 mg/dL (75-99)
[2016-12-24] MEDS: amLODIPine 5 MG TAB PO SCH (20:01)
[2016-12-24 21:09] LABS: Glucose,Whole Blood 98 mg/dL (75-99)
[2016-12-24] MEDS: HEPARIN SODIUM,PORCINE 5,000 UNIT/ML 1 ML VIAL SQ SCH (23:37)
[2016-12-25] MEDS: LEVOTHYROXINE 137 MCG TAB PO SCH (05:32)
[2016-12-25] MEDS: HYDROmorphone 1 MG/ML 1 ML SYRINGE IV PRN ×7 (05:32→23:31)
[2016-12-25] MEDS: SODIUM CHLORIDE 0.9% 1,000 ML IV SCH ×2 (05:39→21:01)
[2016-12-25 06:58] LABS: Glucose,Whole Blood 78 mg/dL (75-99)
--- NOTE | 2016-12-25 07:45 | PN ---
DATE OF SERVICE: 12/24/2016 This 66-year-old woman was admitted with acute small bowel obstruction. NG tube, no chest pain or palpitation, no fever. White count is slightly elevated. On exam, alert and oriented x3. Pulse was 59, blood pressure 155/69, respirations 20, temperature is 98.8, pulse ox 94% on room air. HEENT: Conjunctivae normal. NECK: No jugular venous distension. CARDIOVASCULAR: S1, S2, muffled. RESPIRATORY: Breath sounds diminished at the bases, no rhonchi, no crackles. Abdomen is soft, mild diffuse discomfort minimally, no tenderness. No guarding, no rigidity, no mass palpable. No ascites. Bowel sounds diminished. LEGS: No edema, no swelling. NERVOUS SYSTEM: Higher functions as mentioned, moves all 4 limbs, no focal motor deficits. LYMPHATIC: No lymph noted enlargement. SKIN: No ulcer, rash or bleeding. LABS: WBC 14.5, hemoglobin is 14.5. ASSESSMENT: 1. Abdominal pain and distention, acute small bowel obstruction possibly, on conservative line of treatment with NG tube. 2. Urinary tract infection. 3. Increased WBC. 4. Increased D-dimer. 5. Increased random blood sugar. 6. History of deep venous thrombosis. 7. History of gastroesophageal reflux disease. 8. Hypertension, essential. 9. Hyperlipidemia. 10. History of degenerative joint disease. 11. Hypothyroidism. 12. History environmental allergies. 13. History of chronic diarrhea. 14. History colonic perforation and previous surgery after colonoscopy. 15. History of degenerative joint disease and also hip replacement. 16. History of depression, not otherwise specified. 17. History of nicotine dependence. 18. FULL CODE. RECOMMENDATION: Recommend to continue with the conservative line of treatment. Continue with antibiotics. The white count is improving at this time. Closely follow with Surgery. Guarded prognosis. Further recommendations to follow.
[2016-12-25] MEDS: HEPARIN SODIUM,PORCINE 5,000 UNIT/ML 1 ML VIAL SQ SCH ×3 (08:23→23:23)
[2016-12-25] MEDS: ATENOLOL 50 MG TAB PO SCH (08:23)
[2016-12-25] MEDS: DESVENLAFAXINE SUCCINATE 50 MG TAB.ER.24H PO SCH (08:23)
[2016-12-25] MEDS: PANTOPRAZOLE 40 MG/10 ML VIAL IVP SCH (08:23)
[2016-12-25] MEDS: PIPERACILLIN-TAZOBACTAM 3.375 GM in DEXTROSE/WATER 1 50ML.BAG IVPB SCH ×3 (08:23→23:23)
[2016-12-25] MEDS: INSULIN LISPRO (humaLOG) 300 UNIT/3 ML VIAL SQ SCH ×4 (08:23→22:32)
[2016-12-25 08:43] LABS: Basophils # (A) 0.1 k/uL (0-0.2); Basophils % (A) 0 %; CH 32.2; CHCM 35.2; Eosinophils # (A) 0.1 k/uL (0-0.7); Eosinophils % (A) 1 %; HCT 41.5 % (34.0-46.0); HDW 2.91; HGB 14.4 gm/dL (11.4-16.0); Luc # (Auto) 0.29; Luc % (Auto) 2; Lymphocytes % (A) 22 %; MCH 31.8 pg (25.0-35.0); MCHC 34.7 g/dL (31.0-37.0); MCV 91.7 fL (80.0-100.0); Mean Platelet Volume 6.9; Monocytes # (A) 0.8 k/uL (0-1.0); Monocytes % (A) 6 %; Neutrophils # (A) 9.4 k/uL (1.3-7.7); Neutrophils % (A) 69 %; RBC 4.52 m/uL (3.80-5.40); RDW 13.1 % (11.5-15.5); WBC 13.6 k/uL (3.8-10.6); WBC (Perox) 13.35
[2016-12-25 11:28] LABS: Anion Gap 13 mmol/L; Blood Urea Nitrogen 17 mg/dL (7-17); Calcium 9.5 mg/dL (8.4-10.2); Carbon Dioxide 18 mmol/L (22-30); Chloride 108 mmol/L (98-107); Glucose 77 mg/dL (74-99); Non-African American GFR(MDRD) >60 (>60 ml/min/1.73 sqM); Potassium 3.9 mmol/L (3.5-5.1); Sodium 139 mmol/L (137-145)
[2016-12-25 12:05] LABS: Glucose,Whole Blood 86 mg/dL (75-99)
--- NOTE | 2016-12-25 17:19 | P.PN ---
Subjective Principal diagnosis: bowel obstruction patient frustrated with the nasogastric tube. She has had a small amount of flatus. Still no bowel movement. Abdominal pain is absent. Objective - Vital Signs Vital signs: Vital Signs Temp 96.9 F L 12/25/16 15:00 Pulse 60 12/25/16 15:00 Resp 16 12/25/16 16:00 BP 141/70 12/25/16 15:00 Pulse Ox 93 L 12/25/16 15:00 Intake & Output 12/24/16 12/25/16 12/25/16 18:59 06:59 18:59 Intake Total 650 Output Total 0 0 Balance 650 0 Weight 75.5 kg Intake: IV 650 Piperacillin-Tazobactam 3 50 .375 gm In Dextrose/Water 1 50ml.bag @ 12.5 mls/hr IVPB Q8HR [facility]TE Rx#: [id number] Sodium Chloride 0.9% 1, 600 000 ml @ 75 mls/hr IV . [id number] MAYTE Rx#:[id number] Output: Gastric Drainage 0 0 Other: # Voids 2 1 2 - Exam abdomen: Soft, mild lower abdominal tenderness - Labs CBC & Chem 7: 12/25/16 07:56 12/25/16 07:56 Labs: Abnormal Lab Results - Last 24 Hours (Table) 12/25/16 12/25/16 Range/Units 07:56 07:56 WBC 13.6 H (3.8-10.6) k/uL Neutrophils # 9.4 H (1.3-7.7) k/uL Chloride 108 H (98-107) mmol/L Carbon Dioxide 18 L (22-30) mmol/L Microbiology - Last 24 Hours (Table) 12/22/16 15:57 Blood Culture - Preliminary Blood No Growth after 48 hours Assessment and Plan (1) Small bowel obstruction Narrative/Plan: Will check small bowel series tomorrow. Further commendations will follow. Status: Acute
[2016-12-25 17:32] LABS: Glucose,Whole Blood 95 mg/dL (75-99)
[2016-12-25] MEDS: BENZOCAINE/MENTHOL LOZENG 1 EACH LOZENGE MUCOUS MEM PRN (17:39)
--- NOTE | 2016-12-25 18:43 | P.PN ---
Subjective Date of service 12/25/2016. Progress note being dictated for Dr. Aguilera. Interval history: This a 66-year-old female admitted with acute small bowel obstruction. NG tube maintained to low intermittent suction. Passing flatus, no bowel movement. Denies abdominal pain. States has abdominal tenderness after eating ice chips. Denies chest pain, palpitations or increasing shortness of breath. Afebrile, leukocytosis improving. Objective - Vital Signs Vital signs: Vital Signs Temp 96.9 F L 12/25/16 15:00 Pulse 60 12/25/16 15:00 Resp 16 12/25/16 16:00 BP 141/70 12/25/16 15:00 Pulse Ox 93 L 12/25/16 15:00 Intake & Output 12/24/16 12/25/16 12/25/16 18:59 06:59 18:59 Intake Total 650 Output Total 0 150 Balance 650 -150 Weight 75.5 kg Intake: IV 650 Piperacillin-Tazobactam 3 50 .375 gm In Dextrose/Water 1 50ml.bag @ 12.5 mls/hr IVPB Q8HR [facility]TE Rx#: [id number] Sodium Chloride 0.9% 1, 600 000 ml @ 75 mls/hr IV . [id number] MAYTE Rx#:[id number] Output: Gastric Drainage 0 150 Other: # Voids 2 1 2 - Exam PHYSICAL EXAM: VITAL SIGNS: As above GENERAL: [Sitting up in bed, no acute distress] HEENT: [Pupils equal conjunctiva normal. NG tube present] NECK: [Supple, no JVD] RESPIRATORY EFFORT:[Normal] LUNGS: [Clear, bilateral bases diminished, no wheezes rhonchi or crackles] CARDIOVASCULAR[regular S1-S2, no edema] GI: [Abdomen soft, diffuse abdominal tenderness, hypoactive bowel sounds.] PSYCH: [Alert and oriented -3, mood and affect normal.] NEURO: No focal deficits - Labs CBC & Chem 7: 12/25/16 07:56 12/25/16 07:56 Labs: Abnormal Lab Results - Last 24 Hours (Table) 12/25/16 12/25/16 Range/Units 07:56 07:56 WBC 13.6 H (3.8-10.6) k/uL Neutrophils # 9.4 H (1.3-7.7) k/uL Chloride 108 H (98-107) mmol/L Carbon Dioxide 18 L (22-30) mmol/L Microbiology - Last 24 Hours (Table) 12/22/16 15:57 Blood Culture - Preliminary Blood No Growth after 72 hours Assessment and Plan Plan: 1. [Abdominal pain and distention, acute small bowel obstruction possibly, currently on conservative treatment with NG tube]. 2. [Acute UTI]. 3. [Leukocytosis]. 4. [Increased d-dimer]. 5. [Gastroesophageal reflux disease]. 6. [Essential hypertension]. 7. [Hyperlipidemia]. 8. Degenerative joint disease 9. Hypothyroidism 10. History of chronic diarrhea 11. History of colonic perforation and previous surgery after colonoscopy 12. Degenerative joint disease with hip replacement 13. History of depression, not otherwise specified 14. History of nicotine dependence Plan: Continue on current medication regime, antibiotics, monitoring and symptomatic treatment. Maintain IV fluid hydration. Small bowel series tomorrow as per surgery. Prognosis guarded. Further recommendations to follow. The impression and plan of care has been dictated as directed. : I performed a H&P examination of this patient and discussed the same with the dictator. I agree with the dictator's note. Any additional findings/opinions/ etc. will be noted.
[2016-12-25] MEDS: amLODIPine 5 MG TAB PO SCH (21:01)
[2016-12-25 21:36] LABS: Glucose,Whole Blood 84 mg/dL (75-99)
--- NOTE | 2016-12-25 22:17 | PN ---
DATE OF SERVICE: 12/25/2016 This 66-year-old woman who was admitted with abdominal pain, distention, had a possible small bowel obstruction. Seen and evaluated the patient with the nurse practitioner. Please refer to the nurse practitioner's notes and impressions documented as a scribe for further information. Further recommendations to follow.
[2016-12-26] MEDS: HYDROmorphone 1 MG/ML 1 ML SYRINGE IV PRN ×4 (02:21→14:12)
[2016-12-26] MEDS: LEVOTHYROXINE 137 MCG TAB PO SCH (06:22)
[2016-12-26 07:47] LABS: Glucose,Whole Blood 85 mg/dL (75-99)
[2016-12-26] MEDS: PIPERACILLIN-TAZOBACTAM 3.375 GM in DEXTROSE/WATER 1 50ML.BAG IVPB SCH ×3 (07:56→23:38)
[2016-12-26] MEDS: HEPARIN SODIUM,PORCINE 5,000 UNIT/ML 1 ML VIAL SQ SCH ×3 (07:57→23:38)
[2016-12-26] MEDS: PANTOPRAZOLE 40 MG/10 ML VIAL IVP SCH (07:59)
[2016-12-26] MEDS: BENZOCAINE/MENTHOL LOZENG 1 EACH LOZENGE MUCOUS MEM PRN (08:01)
[2016-12-26] MEDS: INSULIN LISPRO (humaLOG) 300 UNIT/3 ML VIAL SQ SCH ×4 (08:02→21:20)
[2016-12-26] MEDS: SODIUM CHLORIDE 0.9% 1,000 ML IV SCH ×2 (10:57→23:41)
[2016-12-26] MEDS: DESVENLAFAXINE SUCCINATE 50 MG TAB.ER.24H PO SCH (10:57)
[2016-12-26] MEDS: ATENOLOL 50 MG TAB PO SCH (10:57)
--- NOTE | 2016-12-26 11:12 | FL ---
EXAMINATION TYPE: FL small bowel follow through DATE OF EXAM: 12/26/2016 10:46 AM CLINICAL HISTORY: Admitted for bowel obstruction 5 days earlier. History of colon surgery after perfo rated colon. TECHNIQUE: A single contrast small bowel follow through is performed utilizing barium. A total of 50 seconds of fluoroscopic time was utilized during procedure. COMPARISON: CT abdomen and pelvis from 5 days ago. FINDINGS: [employer] image of the abdomen shows interval placement of nasogastric tube with decompression of stomach. There is overall nonobstructive bowel gas pattern with scattered gas in the periphery of the abdomen and pelvis. Surgical sutures and clips in the right lower quadrant are present. Metallic hardware from left hip surgery is partially imaged. Underlying levoconvex scoliosis centered at L3 l evel is redemonstrated. Contrast was instilled through nasogastric tube. The small bowel study shows normal transit to the co catherine in less than 110 minutes. There is a normal mucosal fold pattern throughout the small bowel. Th ere is no evidence of any stricture or filling defect noted. Small bowel loops are felt within normal limits currently. Some lack of small bowel loops suggest prior partial resection. IMPRESSION: Interval resolution of abnormal dilatation consistent with resolving small bowel obstruct ion.
[2016-12-26 11:36] LABS: Glucose,Whole Blood 83 mg/dL (75-99)
[2016-12-26 11:55] LABS: Basophils # (A) 0.1 k/uL (0-0.2); Basophils % (A) 0 %; CHCM 35.1; Eosinophils # (A) 0.1 k/uL (0-0.7); Eosinophils % (A) 1 %; HCT 42.1 % (34.0-46.0); HDW 2.94; HGB 14.3 gm/dL (11.4-16.0); Luc # (Auto) 0.32; Luc % (Auto) 3; Lymphocytes # (A) 2.1 k/uL (1.0-4.8); Lymphocytes % (A) 16 %; MCH 31.2 pg (25.0-35.0); MCV 91.6 fL (80.0-100.0); Mean Platelet Volume 6.4; Monocytes # (A) 0.8 k/uL (0-1.0); Monocytes % (A) 6 %; Neutrophils # (A) 9.7 k/uL (1.3-7.7); Neutrophils % (A) 74 %; RDW 13.2 % (11.5-15.5); WBC (Perox) 13.24
[2016-12-26 12:08] LABS: Anion Gap 12 mmol/L; Blood Urea Nitrogen 20 mg/dL (7-17); Calcium 9.6 mg/dL (8.4-10.2); Carbon Dioxide 23 mmol/L (22-30); Chloride 105 mmol/L (98-107); Glucose 87 mg/dL (74-99); Non-African American GFR(MDRD) >60 (>60 ml/min/1.73 sqM); Potassium 3.9 mmol/L (3.5-5.1); Sodium 140 mmol/L (137-145)
[2016-12-26 16:49] LABS: Glucose,Whole Blood 112 mg/dL (75-99)
--- NOTE | 2016-12-26 18:38 | P.PN ---
Subjective Principal diagnosis: bowel obstruction Patient feels well today. Small bowel series shows resolution of the small bowel obstruction. She is afebrile. Denies pain. She did have a normal bowel movement today. Appetite has returned. Objective - Vital Signs Vital signs: Vital Signs Temp 97.1 F L 12/26/16 15:00 Pulse 61 12/26/16 15:00 Resp 16 12/26/16 15:00 BP 138/73 12/26/16 15:00 Pulse Ox 94 L 12/26/16 15:00 Intake & Output 12/25/16 12/26/16 12/26/16 18:59 06:59 18:59 Intake Total 850 Output Total 150 125 Balance -150 -125 850 Weight 75.5 kg Intake: Oral 850 Output: Gastric Drainage 150 125 Other: # Voids 2 2 4 - Exam Abdomen: Soft, nondistended, nontender - Labs CBC & Chem 7: 12/26/16 11:30 12/26/16 11:30 Labs: Abnormal Lab Results - Last 24 Hours (Table) 12/26/16 12/26/16 12/26/16 Range/Units 11:30 11:30 16:43 WBC 13.0 H (3.8-10.6) k/uL Neutrophils # 9.7 H (1.3-7.7) k/uL BUN 20 H (7-17) mg/dL POC Glucose (mg/dL) 112 H (75-99) mg/dL Microbiology - Last 24 Hours (Table) 12/22/16 15:57 Blood Culture - Preliminary Blood No Growth after 96 hours Assessment and Plan (1) Small bowel obstruction Narrative/Plan: We'll remove the nasogastric tube today. Begin clear liquid diet. Hopefully advance diet tomorrow. Status: Acute
[2016-12-26] MEDS: amLODIPine 5 MG TAB PO SCH (20:57)
[2016-12-26 21:02] LABS: Glucose,Whole Blood 94 mg/dL (75-99)
--- NOTE | 2016-12-26 22:31 | PN ---
DATE OF SERVICE: 12/26/2016 This 66-year-old woman who was admitted with abdominal pain had small-bowel obstruction. She is being closely monitored. Dr. Latham is following the patient closely. A recent small bowel x-ray series showed interval resolution of abnormal dilatation consistent with resolving small-bowel obstruction. Of note, the white count is also 13 at this time. No fever. No cough. On exam, alert and oriented x3. Pulse is 61, blood pressure 138/73, respiration 16, temperature 97.1, pulse ox 94% on room air. HEENT: Conjunctivae normal. NECK: No jugular venous distention. CARDIOVASCULAR SYSTEM: S1, S2 muffled. RESPIRATORY SYSTEM: Breath sounds diminished at the bases. No rhonchi. No crackles. ABDOMEN: Soft. Mild diffuse discomfort on palpation. No guarding. No rigidity. No mass palpable. Bowel sounds present. No ascites. LEGS: No edema. No swelling. NERVOUS SYSTEM: No focal deficit. LABS: WBC 13, hemoglobin 14.3. BUN is noted. ASSESSMENT: 1. Abdominal pain and distention; possible acute small bowel obstruction possibly, currently on conservative line of treatment with NG tube. 2. Acute urinary tract infection. 3. Leukocytosis. 4. Increased D-dimer. 5. Gastroesophageal reflux disease. 6. Essential hypertension. 7. Hyperlipidemia. 8. History of degenerative joint disease. 9. History of hypothyroidism. 10. History of chronic diarrhea. 11. History of colonic perforation and previous surgery after colonoscopy. 12. Degenerative joint disease and hip replacement. 13. History of depression not otherwise specified. 14. History of nicotine dependence. RECOMMENDATIONS AND DISCUSSION: I recommend to continue with the current medications, continue with the monitoring, symptomatic treatment. Otherwise, at this time I recommend diet per Surgery. Continue with empiric antibiotics. Continue to monitor. Further recommendations to follow. Prognosis guarded.
[2016-12-27] MEDS: LEVOTHYROXINE 137 MCG TAB PO SCH (05:53)
[2016-12-27] MEDS: INSULIN LISPRO (humaLOG) 300 UNIT/3 ML VIAL SQ SCH ×2 (07:17→12:36)
[2016-12-27 07:30] LABS: Glucose,Whole Blood 86 mg/dL (75-99)
[2016-12-27 07:48] VITALS: BP 142/73; PULSE 74; RESP 16; TEMP 97.3
[2016-12-27] MEDS: DESVENLAFAXINE SUCCINATE 50 MG TAB.ER.24H PO SCH (08:32)
[2016-12-27] MEDS: PIPERACILLIN-TAZOBACTAM 3.375 GM in DEXTROSE/WATER 1 50ML.BAG IVPB SCH (08:32)
[2016-12-27] MEDS: HEPARIN SODIUM,PORCINE 5,000 UNIT/ML 1 ML VIAL SQ SCH (08:32)
[2016-12-27] MEDS: PANTOPRAZOLE 40 MG/10 ML VIAL IVP SCH (08:32)
[2016-12-27] MEDS: ATENOLOL 50 MG TAB PO SCH (08:32)
[2016-12-27] MEDS ORDERED: ACETAMINOPHEN TAB 325 MG TAB PO PRN (08:36)
[2016-12-27 10:13] LABS: Basophils % (A) 0 %; CH 31.9; CHCM 35.1; Eosinophils # (A) 0.2 k/uL (0-0.7); Eosinophils % (A) 2 %; HCT 38.9 % (34.0-46.0); HDW 2.91; HGB 13.5 gm/dL (11.4-16.0); Luc # (Auto) 0.22; Luc % (Auto) 2; Lymphocytes # (A) 2.1 k/uL (1.0-4.8); Lymphocytes % (A) 21 %; MCH 31.7 pg (25.0-35.0); MCHC 34.6 g/dL (31.0-37.0); MCV 91.5 fL (80.0-100.0); Mean Platelet Volume 6.6; Monocytes # (A) 0.5 k/uL (0-1.0); Monocytes % (A) 6 %; Neutrophils # (A) 6.7 k/uL (1.3-7.7); Neutrophils % (A) 68 %; RBC 4.26 m/uL (3.80-5.40); RDW 13.4 % (11.5-15.5); WBC 9.8 k/uL (3.8-10.6); WBC (Perox) 10.25
[2016-12-27 10:23] LABS: Anion Gap 11 mmol/L; Blood Urea Nitrogen 10 mg/dL (7-17); Calcium 9.2 mg/dL (8.4-10.2); Carbon Dioxide 21 mmol/L (22-30); Chloride 107 mmol/L (98-107); Glucose 234 mg/dL (74-99); Non-African American GFR(MDRD) >60 (>60 ml/min/1.73 sqM); Sodium 139 mmol/L (137-145)
[2016-12-27] MEDS: POTASSIUM CHLORIDE ER 20 MEQ TAB.ER PO SCH ×3 (11:09→13:59)
--- NOTE | 2016-12-27 11:30 | P.PN ---
Subjective Principal diagnosis: bowel obstruction Patient doing well today. She is tolerating her liquid diet thus far. She is hoping to go home today. He has no pain. Is having some liquid stools. Objective - Vital Signs Vital signs: Vital Signs Temp 97.3 F L 12/27/16 07:00 Pulse 74 12/27/16 07:00 Resp 16 12/27/16 07:00 BP 142/73 12/27/16 07:00 Pulse Ox 96 12/27/16 07:00 Intake & Output 12/26/16 12/27/16 12/27/16 18:59 06:59 18:59 Intake Total 850 Balance 850 Intake: Oral 850 Other: # Voids 4 1 1 # Bowel Movements 1 - Exam Abdomen: Soft, nontender, nondistended - Labs CBC & Chem 7: 12/27/16 09:37 12/27/16 09:37 Labs: Abnormal Lab Results - Last 24 Hours (Table) 12/26/16 12/26/16 12/26/16 Range/Units 11:30 11:30 16:43 WBC 13.0 H (3.8-10.6) k/uL Neutrophils # 9.7 H (1.3-7.7) k/uL Potassium (3.5-5.1) mmol/L Carbon Dioxide (22-30) mmol/L BUN 20 H (7-17) mg/dL Glucose (74-99) mg/dL POC Glucose (mg/dL) 112 H (75-99) mg/dL 12/27/16 Range/Units 09:37 WBC (3.8-10.6) k/uL Neutrophils # (1.3-7.7) k/uL Potassium 3.0 L* (3.5-5.1) mmol/L Carbon Dioxide 21 L (22-30) mmol/L BUN (7-17) mg/dL Glucose 234 H (74-99) mg/dL POC Glucose (mg/dL) (75-99) mg/dL Microbiology - Last 24 Hours (Table) 12/22/16 15:57 Blood Culture - Preliminary Blood No Growth after 96 hours Assessment and Plan (1) Small bowel obstruction Narrative/Plan: Advance diet. If tolerates stable for discharge from my standpoint. Status: Acute
--- NOTE | 2016-12-27 12:31 | DS ---
DATE OF ADMISSION: 12/21/2016 DATE OF DISCHARGE: PROGRESS NOTE AND DISCHARGE SUMMARY The patient is a 66-year-old who came in with abdominal pain, found to have partial small bowel obstruction improved with conservative measures and patient is clinically doing well except for 4 episodes of diarrhea which may be related to the barium she received today morning, but patient is also on IV antibiotics. I do not believe patient will require any antibiotics. Patient does not have any acute abdomen at this point of time. Antibiotics will be discontinued. May be contributing to her diarrhea as well. If patient has diarrhea again will obtain Clostridium difficile testing at that time. Patient will need to stay in the hospital. Otherwise, the patient can be discharged if her diarrhea improves later in the day today. We are advancing the diet at this point of time. Patient is hypokalemic because of the diarrhea and potassium was supplemented at this point of time. REVIEW OF SYSTEMS: CARDIOVASCULAR: No chest pain, no orthopnea, no PND, no palpitations. PULMONARY: Denied any shortness of breath. No cough or hemoptysis. GASTROINTESTINAL: As mentioned above. NEUROLOGIC: No headaches, no weakness, no numbness. Medications were reviewed. PHYSICAL EXAMINATION: VITAL SIGNS: Temperature 97.3, pulse of 74, respiratory rate of 16, blood pressure is 142/73, saturating at 96% on room air. GENERAL: The patient is alert and oriented x3, not in any acute distress. Well developed, well nourished. HEENT: Pupils are round and equally reacting to light. EOMI. No scleral icterus. No conjunctival pallor. Normocephalic, atraumatic. No pharyngeal erythema. No thyromegaly. CARDIOVASCULAR: S1 and S2 present. No murmurs, rubs, or gallops. PULMONARY: Chest is clear to auscultation, no wheezing or crackles. ABDOMEN: Soft, nontender, nondistended, normoactive bowel sounds. No palpable organomegaly. MUSCULOSKELETAL: No joint swelling or deformity. EXTREMITIES: No cyanosis, clubbing, or pedal edema. NEUROLOGICAL: Gross neurological examination did not reveal any focal deficits. SKIN: No rashes. LABORATORY DATA: Potassium of 3.0 as mentioned above. ASSESSMENT AND PLAN: 1. Partial small bowel obstruction, improved with conservative measures. 2. Patient was treated for urinary tract infection although I do not believe patient has urinary tract infection. Urine cultures are negative. Patient probably has asymptomatic bacteruria. 3. Leukocytosis. It appears to be reactive which is improving at this point of time. 4. Diarrhea secondary to above mentioned reasons. 5. Hypertension. 6. Hyperlipidemia. 7. Hypothyroidism. Patient will be discharged today as mentioned above and patient will follow with Dr. El Latham as needed and seen by Dr. Nuria Trevino on January 03 at 3 p.m. Cardiac and diabetic 1800 calorie diet. Spent greater than 35 minutes in total discharge process.
[2016-12-27 12:32] LABS: Glucose,Whole Blood 93 mg/dL (75-99)
== END 2016-12-27 14:42 | disposition home or self-care (01) | DRG 390 ==
LOC: EC 18:16 → 4MS4W 22:22
PROVIDERS: ADMIT Hospitalist; ATTEND Hospitalist
PROC: 0D9670Z Drainage of Stomach with Drainage Device, Via Natural or Artificial Opening (ICD-10-PCS; principal; 2016-12-21)
DX: K56.60 Unspecified intestinal obstruction (principal); J84.112 Idiopathic pulmonary fibrosis; I10 Essential (primary) hypertension; R82.71 Bacteriuria; E78.5 Hyperlipidemia, unspecified; E03.9 Hypothyroidism, unspecified; E11.9 Type 2 diabetes mellitus without complications; K21.9 Gastro-esophageal reflux disease without esophagitis; F32.9 Major depressive disorder, single episode, unspecified; R35.0 Frequency of micturition; E87.6 Hypokalemia; M19.91 Primary osteoarthritis, unspecified site; F17.200 Nicotine dependence, unspecified, uncomplicated; Z86.718 Personal history of other venous thrombosis and embolism; Z87.440 Personal history of urinary (tract) infections; Z96.642 Presence of left artificial hip joint; Z79.82 Long term (current) use of aspirin; Z79.84 Long term (current) use of oral hypoglycemic drugs; Z79.899 Other long term (current) drug therapy
CPT/HCPCS: 36415; 43753; 71020; 71275; 74020; 74176; 74250; 80048; 80053; 81001; 82150; 82550; 82553; 83036; 83605; 83690; 83735; 84484; 85025; 85379; 85610; 85730; 87040; 87086; 93005; 94760

== ENCOUNTER → 2018-01-01 | Outpatient (CLI) | payer MEDICARE ==
--- NOTE | 2018-01-03 11:09 | MM ---
Reason for exam: screening (asymptomatic). Last mammogram was performed 1 year and 2 months ago. History: Patient is postmenopausal. Benign core biopsy of the left breast, 1985. Physical Findings: A clinical breast exam by your physician is recommended on an annual basis and results should be correlated with mammographic findings. MG 3D Screening Mammo W/Cad Bilateral CC and MLO view(s) were taken. Prior study comparison: November 14, 2016, bilateral MG 3d screening mammo w/cad. October 29, 2015, bilateral MG screening mammo w CAD. There are scattered fibroglandular densities. No significant changes when compared with prior studies. ASSESSMENT: Negative, BI-RAD 1 RECOMMENDATION: Routine screening mammogram of both breasts in 1 year.
== END | disposition home or self-care (01) ==
LOC: RADMAMWWP 10:40
PROVIDERS: ATTEND Internal Medicine
DX: Z12.31 Encounter for screening mammogram for malignant neoplasm of breast (principal)
CPT/HCPCS: 77063; 77067

== ENCOUNTER → 2018-01-02 | Outpatient (CLI) | payer MEDICARE ==
--- NOTE | 2018-01-02 17:17 | US ---
EXAMINATION TYPE: US venous doppler duplex LE RT DATE OF EXAM: 01/02/2018 5:03 PM COMPARISON: NONE CLINICAL HISTORY: M79.89 Rt Lower Ext Pain and swelling. Recent travel SIDE PERFORMED: Right TECHNIQUE: The lower extremity deep venous system is examined utilizing real time linear array sonog riley with graded compression, doppler sonography and color-flow sonography. VESSELS IMAGED: External Iliac Vein (EIV) Common Femoral Vein Deep Femoral Vein Greater Saphenous Vein * Femoral Vein Popliteal Vein Small Saphenous Vein * Proximal Calf Veins (* superficial vessels) DESCRIPTION: Grayscale, color doppler, spectral doppler imaging performed of the deep veins of the l ower extremities. There are no filling defects. There is normal flow, compressibility, vascular wavef orms. IMPRESSION: NEGATIVE FOR VENOUS THROMBOSIS, RIGHT LOWER EXTREMITY.
== END | disposition home or self-care (01) ==
LOC: RADUSMAIN 16:34
PROVIDERS: ATTEND Internal Medicine
DX: M79.89 Other specified soft tissue disorders (principal)

== ENCOUNTER 2019-01-26 22:17 | Emergency (ER) | payer MEDICARE ==
[2019-01-26 22:52] VITALS: RESP 18
[2019-01-26] MEDS ORDERED: LIDOCAINE 5% PATCH TOPICAL STA (23:21)
[2019-01-26] MEDS ORDERED: METHOCARBAMOL 500 MG TAB PO STA (23:21)
--- NOTE | 2019-01-26 23:51 | CT ---
EXAM: CT Cervical Spine Without Intravenous Contrast CLINICAL HISTORY: ITS.REASON CT Reason: Pain TECHNIQUE: Axial computed tomography images of the cervical spine without intravenous contrast. CTDI is 13.7 mGy and DLP is 359.7 mGy-cm. This CT exam was performed using one or more of the following dose reduction techniques: automated exposure control, adjustment of the mA and/or kV according to patient size, and/or use of iterative reconstruction technique. COMPARISON: No relevant prior studies available. FINDINGS: Vertebrae: Moderate intervertebral disc height loss, endplate osteophyte formation, and uncovertebral joint hypertrophy at the C5-C6 and C6-C7 levels. Discs/spinal canal/neural foramina: Degenerative changes at the atlantodens interval. No spinal canal stenosis. Soft tissues: Unremarkable. Sinuses: Mild mucosal thickening in the sphenoid sinus. Lung apices: Bronchiectasis and parenchymal nodularity in the left lung apex. Consider infectious or inflammatory etiologies. Mild right apical pleural parenchymal scarring. IMPRESSION: No acute fracture or subluxation. Mild multilevel cervical spondylosis, more so at C5-6 and C6-C7 levels.
--- NOTE | 2019-01-27 00:40 | ED ---
General Adult HPI - General Chief complaint: Neck Pain/Injury Stated complaint: Neck injury/pain Time Seen by Provider: 01/26/19 23:12 Source: patient Mode of arrival: ambulatory Limitations: no limitations - History of Present Illness Initial comments: 69-year-old female presenting with neck pain that began 4 days prior. Patient states she had been very active with moving things and setting up her trailer. She awoke one morning and had pain in her neck radiating up to her scalp. She has been trying Motrin and Tylenol without relief. She denies any numbness or weakness in her hands. Denies any direct trauma to her neck. She states that the headache began after the neck pain did. She denies any visual changes. She admits to similar episodes in the past that have not lasted the duration of this one. - Related Data Home Medications Medication Instructions Recorded Confirmed Atenolol [Tenormin] 50 mg PO QAM 02/08/15 12/21/16 Atorvastatin [Lipitor] 10 mg PO DAILY 02/08/15 12/21/16 Desvenlafaxine Succinate [Pristiq 100 mg PO QAM 02/08/15 12/21/16 ER] Diphenoxylate HCl/Atropine 1 tab PO DAILY 02/08/15 12/21/16 [Lomotil] Levothyroxine Sodium [Synthroid] 137 mcg PO DAILY 02/08/15 12/21/16 amLODIPine [Norvasc] 5 mg PO HS 02/08/15 12/21/16 Aspirin 325 mg PO DAILY 12/21/16 12/21/16 Omeprazole 20 mg PO DAILY 12/21/16 12/21/16 metFORMIN HCL [Glucophage] 500 mg PO BID 12/21/16 12/21/16 Previous Rx's Medication Instructions Recorded Lidocaine [Aspercreme Patch] 1 patch TRANSDERM DAILY PRN #10 01/27/19 patch Methocarbamol [Robaxin] 1,000 mg PO QID PRN #20 tab 01/27/19 Allergies Allergy/AdvReac Type Severity Reaction Status Date / Time quinine Allergy Dyspnea Verified 01/26/19 22:52 ADHESIVE TAPE AdvReac Unknown RED , Uncoded 01/26/19 22:52 IRRITATED SKIN. "PAPER TAPE IS OK" Review of Systems ROS Statement: Those systems with pertinent positive or pertinent negative responses have been documented in the HPI. Review of Systems Constitutional: Denies fever, chills Eyes: Denies change in vision, Denies pain Ears, nose, mouth, throat: Denies headaches, Denies sore throat Cardiovascular: Denies chest pain. Denies palpitations Respiratory: Denies shortness of breath, Denies cough Gastrointestinal: Denies abdominal pain. Denies nausea, vomiting, diarrhea. Genitourinary: Denies hematuria, Denies infections Musculoskeletal: Positive pain, Denies swelling Integumentary: Denies rash Neurological: Denies headache, focal weakness, focal numbness Psychiatric: Denies anxiety, Denies depression Hematologic/Lymphatic: Denies easy bleeding or bruising ROS Other: All systems not noted in ROS Statement are negative. Past Medical History Past Medical History: Deep Vein Thrombosis (DVT), GERD/Reflux, Hyperlipidemia, Hypertension, Osteoarthritis (OA), Thyroid Disorder Additional Past Medical History / Comment(s): ENVIRONMENTAL ALLERGIES, CHRONIC DIARRHEA, FREQUENT URINATION. DVT ,HERNIA,RECENT ABNORMAL CT OF ABD/PELVIS History of Any Multi-Drug Resistant Organisms: None Reported Past Surgical History: Hernia Repair, Joint Replacement Additional Past Surgical History / Comment(s): COLONOSCOPY WITH PERFORATED BOWEL & BOWEL RESECTION THEN MORE SURGERY FOR INFECTION.LEFT HIP REPLACEMENT (MAY 2013). INCISION HERNIA REPAIR,TUMOR REMOVED FROM BEHIND RT EAR. Past Anesthesia/Blood Transfusion Reactions: No Reported Reaction Additional Past Anesthesia/Blood Transfusion Reaction / Comment(s): SOMETIMES TAKES LONGER WAKING UP FROM ANESTHESIA.DAUGHTER BECOMES AGITATED WITH ANESTHESIA Past Psychological History: Depression Smoking Status: Former smoker Past Alcohol Use History: None Reported Past Drug Use History: None Reported - Past Family History Father Additional Family Medical History / Comment(s): BRAIN HEMORRHAGE Son(s) Family Medical History: Cancer Additional Family Medical History / Comment(s): THYROID-NON HODGKINS General Exam - General Exam Comments Initial Comments: General: Awake, alert, No acute Distress HENT: Normocephalic. Atraumatic Eyes: PERRL. EOMI. No scleral icterus. No injected conjunctiva Neck: Full ROM. Bilateral trapezius hypertonicity. C6-C7 midline tenderness. Chest/Lungs: Clear to auscultation bilaterally. No wheezing, rhonchi, or rales Cardiac: Regular rate, rhythm. No murmurs or rubs Abdomen/GI: Soft, nontender, nondistended. No rebound, guarding, or rigidity. Musculoskeletal: Full ROM Skin: Warm, dry, intact Neurologic: A/Ox3, no weakness, no sensory deficit, no abnormal gait, no coordination deficit. C5-T1 sensation intact bilaterally. BUE strength intact bilaterally Limitations: no limitations Course Vital Signs 01/26/19 01/26/19 22:48 23:08 Temperature 97.9 F Pulse Rate 79 73 Respiratory 18 18 Rate Blood Pressure 97/65 111/65 O2 Sat by Pulse 95 93 L Oximetry Medical Decision Making - Medical Decision Making 69-year-old female presenting with neck pain. Initial exam the patient is awake, alert, she is no neurologic deficit. No trauma to the area. Patient CT showed C6-C7 spondylolysis but otherwise was negative for acute process. The patient was given Robaxin and lidocaine patch on the department with improvement of her symptoms. Patient states she would like to follow up outpatient with her physician for further workup is indicated. She was given Robaxin and lido yesenia patch prescriptions. No further emergent workup indicated. The patient was given return to ED instructions. They were instructed to follow up with their primary care provider. Stable for discharge at this time. Disposition Clinical Impression: Neck pain Disposition: HOME SELF-CARE Instructions (If sedation given, give patient instructions): Cervical Strain (ED), Cervical Sprain (ED) Prescriptions: Lidocaine [Aspercreme Patch] 1 patch TRANSDERM DAILY PRN #10 patch PRN Reason: Pain Methocarbamol [Robaxin] 1,000 mg PO QID PRN #20 tab PRN Reason: Pain Is patient prescribed a controlled substance at d/c from ED?: Yes When asked, does pt state using other controlled substances?: No If prescribed controlled substance>3 days was MAPS reviewed?: Prescribed <3 Days If opioid is for acute pain is fill amount 7 days or less?: Yes If Rx opioid, was Start Talking consent form obtained?: Yes Referrals: Nuria Trevino MD [Primary Care Provider] - 1-2 days
[2019-01-27 01:08] VITALS: BP 124/75; PULSE 74; TEMP 97.2
== END 2019-01-27 01:07 | disposition home or self-care (01) ==
LOC: EC 22:17
DX: M54.2 Cervicalgia (principal); M43.02 Spondylolysis, cervical region; K21.9 Gastro-esophageal reflux disease without esophagitis; E78.5 Hyperlipidemia, unspecified; I10 Essential (primary) hypertension; M19.90 Unspecified osteoarthritis, unspecified site; E07.9 Disorder of thyroid, unspecified; F32.9 Major depressive disorder, single episode, unspecified; Z86.718 Personal history of other venous thrombosis and embolism; Z87.891 Personal history of nicotine dependence; Z79.890 Hormone replacement therapy; Z79.899 Other long term (current) drug therapy; Z79.82 Long term (current) use of aspirin; Z79.84 Long term (current) use of oral hypoglycemic drugs; Z91.048 Other nonmedicinal substance allergy status; Z88.1 Allergy status to other antibiotic agents; Z96.642 Presence of left artificial hip joint
CPT/HCPCS: 72125; 99284